=== PATIENT | male | born 1945 | race Caucasian/White ===

== ENCOUNTER 2016-10-18 10:52 | Day surgery (SDC) | payer MEDICARE, BC ==
[2016-10-15 10:18] LABS: ASPARTATE AMINO TRANSFERASE 13 U/L (15-37); BLOOD UREA NITROGEN 19 mg/dL (7-18)
[~2016-10-18] VITALS: Ht 172.7 cm; Wt 87.0 kg
[~2016-10-18 10:52] MED LIST: ASPI-496 PO; BENZ100C4 PO; CYAN10005 PO; LISI-167 PO; METF10002 PO; MULT-412 PO; ONDA4TAB13 SL; PRAV40TA2 PO; TADA10TA PO; TAMS0.4C2 PO
[2016-10-18 11:19] VITALS: BP 132/70
[2016-10-18] MEDS ORDERED: FENTANYL PF 250 MCG/5ML ONE (11:36)
[2016-10-18] MEDS ORDERED: MIDAZOLAM 1 MG/ML, 2ML ONE (11:36)
[2016-10-18] MEDS ORDERED: BUPIVACAINE/PF-EPI 0.5% 1:200K ONE (11:42)
[2016-10-18] MEDS ORDERED: LACTATED RINGERS 1,000 ML IV SCH (11:49)
[2016-10-18] MEDS ORDERED: NEOSTIGMINE 1 MG/ML, 10ML ONE (12:10)
[2016-10-18] MEDS ORDERED: ROCURONIUM 10 MG/ML ONE (12:10)
[2016-10-18] MEDS ORDERED: GLYCOPYRROLATE 0.2MG/1ML ONE (12:10)
[2016-10-18] MEDS ORDERED: PROPOFOL 10 MG/ML, 20ML ONE (12:10)
[2016-10-18] MEDS ORDERED: SUCCINYLCHOLINE 20 MG/ML, 10ML ONE (12:10)
[2016-10-18] MEDS ORDERED: ONDANSETRON 2MG/ML, 2ML ONE ×3 (12:10→16:50)
[2016-10-18] MEDS ORDERED: METOCLOPRAMIDE 5 MG/ML, 2ML IV PRN (13:00)
[2016-10-18] MEDS ORDERED: OXYcodone 5 MG/5 ML ORAL.SOL UDC PO PRN (13:00)
[2016-10-18] MEDS ORDERED: hydrALAzine 20 MG/ML, 1ML IV PRN (13:00)
[2016-10-18] MEDS ORDERED: ONDANSETRON 2MG/ML, 2ML IVPush PRN ×2 (13:00→17:00)
[2016-10-18] MEDS ORDERED: ACETAMINOPHEN 325 MG TABLET PO PRN (13:00)
[2016-10-18] MEDS ORDERED: LABETALOL 5MG/ML, 20ML IV PRN (13:00)
[2016-10-18] MEDS ORDERED: ACETAMINOPHEN 325 MG TABLET ONE (13:24)
[2016-10-18] MEDS ORDERED: OXYcodone 5 MG/5 ML ORAL.SOL UDC ONE (13:24)
[2016-10-18] MEDS ORDERED: HYDROmorphone 2 MG/ML, 1ML ONE (13:24)
[2016-10-18] MEDS: HYDROmorphone 1 MG/ML, 1ML IV PRN ×4 (13:25→13:53)
[2016-10-18] MEDS: FENTANYL PF 100 MCG/2ML IV PRN ×2 (13:36→13:45)
[2016-10-18] MEDS ORDERED: FENTANYL PF 100 MCG/2ML ONE (13:44)
[2016-10-18] MEDS ORDERED: MORPHINE SULFATE 4 MG/ML, 1ML ONE (14:28)
[2016-10-18] MEDS ORDERED: MORPHINE SULFATE 4 MG/ML, 1ML IVPush ONE (14:30)
[2016-10-18] MEDS ORDERED: HYDROcodone/APAP 5/325 TABLET PO PRN (17:00)
[2016-10-18] MEDS ORDERED: OXYcodone/APAP 5/325MG TABLET PO PRN (17:00)
== END 2016-10-18 18:40 | disposition home or self-care (01) ==
LOC: OUT 10:52
PROVIDERS: ATTEND Surgery
DX: K81.1 Chronic cholecystitis (principal); I10 Essential (primary) hypertension; E11.9 Type 2 diabetes mellitus without complications; E03.9 Hypothyroidism, unspecified; Z85.820 Personal history of malignant melanoma of skin; E78.5 Hyperlipidemia, unspecified; N40.0 Benign prostatic hyperplasia without lower urinary tract symptoms; Z72.89 Other problems related to lifestyle; Z82.49 Family history of ischemic heart disease and other diseases of the circulatory system
CPT/HCPCS: 36415; 47562; 80053; 82962; 85014; 85018; 88304; 93005; J0330; J1170; J2250; J2405; J2704; J2710; J3010; J3490; J7120